=== PATIENT | female | born 1935 | race Caucasian/White ===

== ENCOUNTER 2019-03-28 10:29 | Emergency (ER) | payer MEDICARE, BC, OTHER ==
[~2019-03-28] VITALS: Ht 172.7 cm; Wt 74.8 kg
[2019-03-28] MEDS ORDERED: NORCO 5-325 TA1 EAC1 PO (12:19)
[2019-03-28] MEDS ORDERED: KEFLEX500 M1 PO (12:19)
[2019-03-28 12:54] VITALS: BP 133/82
== END 2019-03-28 12:55 | disposition home or self-care (01) ==
LOC: M.ERS 10:29
DX: S61.212A Laceration without foreign body of right middle finger without damage to nail, initial encounter (principal); S61.411A Laceration without foreign body of right hand, initial encounter; E78.00 Pure hypercholesterolemia, unspecified; Z98.890 Other specified postprocedural states; W01.0XXA Fall on same level from slipping, tripping and stumbling without subsequent striking against object, initial encounter; Y93.01 Activity, walking, marching and hiking; Y92.89 Other specified places as the place of occurrence of the external cause; Y99.8 Other external cause status

== ENCOUNTER → 2019-07-18 | Outpatient (CLI) | payer MEDICARE, BC, OTHER ==
[~2019-07-18] MED LIST: KEFLEX500 M1 PO; NORCO 5-325 TA1 EAC1 PO
== END ==
LOC: M.MRI 11:08
DX: I67.82 Cerebral ischemia (principal); R90.82 White matter disease, unspecified; F03.90 Unspecified dementia, unspecified severity, without behavioral disturbance, psychotic disturbance, mood disturbance, and anxiety; R26.9 Unspecified abnormalities of gait and mobility; E53.8 Deficiency of other specified B group vitamins